=== PATIENT | female | born 1990 | race Caucasian/White ===

== ENCOUNTER 2019-07-13 12:27 | Emergency (ER) | payer SELFPAY ==
[~2019-07-13] VITALS: Ht 165.1 cm; Wt 63.5 kg
[2019-07-13 12:49] VITALS: Ht 165.1 cm; Wt 63.5 kg
[2019-07-13 16:24] VITALS: BP 122/75
== END 2019-07-13 16:24 | disposition home or self-care (01) ==
LOC: ED 12:27
DX: S16.1XXA Strain of muscle, fascia and tendon at neck level, initial encounter (principal); S29.012A Strain of muscle and tendon of back wall of thorax, initial encounter; Z88.5 Allergy status to narcotic agent; V49.9XXA Car occupant (driver) (passenger) injured in unspecified traffic accident, initial encounter; Y93.I9 Activity, other involving external motion; Y92.413 State road as the place of occurrence of the external cause; Y99.8 Other external cause status